=== PATIENT | female | born 1970 | race Asian ===

== ENCOUNTER 2019-07-16 15:41 | Emergency (ER) | payer BC ==
[~2019-07-16] VITALS: Ht 170.2 cm; Wt 61.7 kg
[2019-07-16 15:47] VITALS: Ht 170.2 cm; Wt 61.7 kg
[2019-07-16 17:34] VITALS: BP 126/64
== END 2019-07-16 17:34 | disposition home or self-care (01) ==
LOC: ED 15:41
DX: M25.571 Pain in right ankle and joints of right foot (principal); S82.891A Other fracture of right lower leg, initial encounter for closed fracture; X50.1XXA Overexertion from prolonged static or awkward postures, initial encounter; Y93.89 Activity, other specified; Y92.89 Other specified places as the place of occurrence of the external cause; Y99.8 Other external cause status
CPT/HCPCS: Q0092